=== PATIENT | female | born 1990 | race American Indian/Alaskan Native ===

== ENCOUNTER 2017-01-17 22:42 | Emergency (ER) | payer OTHER ==
[2017-01-17 23:39] LABS: Basophils % (Auto) 0.3 % (0.0-1.8); Eosinophils % (Auto) 0.4 % (0.0-4.3); Hematocrit 36.3 % (30.3-42.9); Hemoglobin 11.4 gm/dl (10.1-14.3); Mean Corpuscular HGB Conc 31 % (30-34); Mean Corpuscular Hemoglobin 27 pg (28-32); Mean Corpuscular Volume 87 fl (79-97); Platelet Count 250 K/mm3 (140-440); Red Blood Count 4.17 M/mm3 (3.65-5.03); Red Cell Distribution Width 15.1 % (13.2-15.2); White Blood Count 13.2 K/mm3 (4.5-11.0)
[2017-01-18 00:09] LABS: Alanine Aminotransferase 10 units/L (7-56); Albumin 3.6 g/dL (3.9-5); Albumin/Globulin Ratio 0.9 %; Alkaline Phosphatase 57 units/L (35-129); Anion Gap 20 mmol/L; BUN/Creatinine Ratio 13.33; Bilirubin,Total < 0.20 mg/dL (0.1-1.2); Blood Urea Nitrogen 8 mg/dL (7-17); Calcium 9.4 mg/dL (8.4-10.2); Carbon Dioxide 22 mmol/L (22-30); Chloride 99.6 mmol/L (98-107); Glucose 100 mg/dL (65-100); Lipase 22 units/L (13-60); Potassium 3.4 mmol/L (3.6-5.0); Sodium 138 mmol/L (137-145); Total Protein 7.6 g/dL (6.3-8.2)
[2017-01-18 02:05] VITALS: BP 117/64
[2017-01-18 02:05] LABS: Bacteria,Urine 2+ /HPF (Negative); Bilirubin,Urine NEG (Negative); Blood,Urine SM (Negative); Ketones,Urine NEG (Negative); Leukocyte Esterase,Urine LG (Negative); Mucus,Urine 3+ /HPF; Nitrite,Urine POS (Negative); Protein,Urine <15 mg/dL mg/dL (Negative); Urobilinogen,Urine < 2.0 mg/dL (<2.0)
== END 2017-01-18 04:35 | disposition left against medical advice (07) ==
LOC: ED 22:42
DX: R10.2 Pelvic and perineal pain (principal); Z53.21 Procedure and treatment not carried out due to patient leaving prior to being seen by health care provider
CPT/HCPCS: 36415; 80053; 81001; 83690; 84702; 85025

== ENCOUNTER 2020-02-09 03:14 | Emergency (ER) | payer OTHER ==
[2020-02-09] MEDS ORDERED: SULFAMETHOXAZOLE/TRIMETHOPRIM 800/160MG DS TAB PO ONE (04:25)
[2020-02-09] MEDS ORDERED: ACETAMINOPHEN 500 MG TAB PO ONE (04:25)
[2020-02-09] MEDS ORDERED: IBUPROFEN 600 MG TAB PO ONE (04:25)
--- NOTE | 2020-02-09 05:24 | XRay Report ---
CLINICAL DATA: Pain from a fall TECHNICAL DATA: Three views were obtained, AP, lateral and oblique. FINDINGS: There is no acute fracture or dislocation. The visualized joint spaces are normal. IMPRESSION: No acute radiographic abnormality. Signer Name: Clint Marks MD Signed: 02/09/2020 5:20 AM Workstation Name: [id number]
--- NOTE | 2020-02-09 05:29 | Emergency Department Report ---
ED Fall HPI - General Chief Complaint: Fall Stated Complaint: LACERATION TO THUMB ON RT HAND Source: patient Mode of arrival: Ambulatory - History of Present Illness Initial Comments: Patient is a 29-year-old -[place]ones[place] female with a history of asthma and chronic tobacco abuse who presents to the ED with complaint of acute onset persistent severe right thumb pain and left thumbnail pain with bleeding abrasion after she slipped in the bathtub and fell down but braced herself with the bilateral hands and in the process her right thumbnail was hyperextended with a partial tear about 2 hours ago. Patient states that the bleeding is well controlled at this time but the pain has been persistent worse. Patient states she is up-to-date with her vaccinations. Patient denies numbness and tingling or weakness of right hand, dizziness, syncope, seizures, chest pain or shortness of breath, head or neck injuries, back pain, hip pain, abdominal pain or dental injuries. MD Complaint: fall, other (right thumb pain with partial nail avulsion) -: Sudden, hour(s) (2) Fall From: other (slipped and fell down in the bath tub) When Fall Occurred: 1-3 hours [employer] Fall Witnessed: yes, by family Place Fall Occurred: home Loss of Consciousness: none Prolonged Down Time?: no Symptoms Prior to Fall: none Location: other (right thumb and thumb nail) Location - Extremities: Right: Hand (Right thumb and nail pain) Severity: severe Severity scale (0 -10): 7 Quality: sharp, aching Context: tripped/slipped Associated Symptoms: denies. denies: headache, neck pain, numbness, weakness, chest paint, shortness of breath, abdominal pain, hematuria, unable to walk, lightheaded, vertigo, confusion, other - Related Data Previous Rx's Medication Instructions Recorded Last Taken Type Ibuprofen [Motrin] 800 mg PO Q8HR PRN #30 tablet 02/09/20 Unknown Rx Sulfamethoxazole/Trimethoprim 1 each PO Q12H #20 tablet 02/09/20 Unknown Rx [Bactrim DS TAB] Allergies Allergy/AdvReac Type Severity Reaction Status Date / Time fruit Allergy Itching Uncoded 02/09/20 03:26 ED Review of Systems ROS: Stated complaint: LACERATION TO THUMB ON RT HAND Other details as noted in HPI Constitutional: denies: chills, fever Eyes: denies: eye pain, eye discharge, vision change ENT: denies: ear pain, throat pain Respiratory: denies: cough, shortness of breath, wheezing Cardiovascular: denies: chest pain, palpitations Endocrine: no symptoms reported Gastrointestinal: denies: abdominal pain, nausea, diarrhea Genitourinary: denies: urgency, dysuria, discharge Musculoskeletal: arthralgia (Right thumb pain with nail injury). denies: back pain, joint swelling Skin: denies: rash, lesions Neurological: denies: headache, weakness, paresthesias Psychiatric: denies: anxiety, depression Hematological/Lymphatic: denies: easy bleeding, easy bruising ED Past Medical Hx - Past Medical History Previous Medical History?: Yes Hx Asthma: Yes - Surgical History Past Surgical History?: Yes Additional Surgical History: x1. left knee. tubal ligation - Social History Smoking Status: Never Smoker Substance Use Type: None - Medications Home Medications: Home Medications Medication Instructions Recorded Confirmed Last Taken Type Ibuprofen [Motrin] 800 mg PO Q8HR PRN #30 tablet 02/09/20 Unknown Rx Sulfamethoxazole/Trimethoprim 1 each PO Q12H #20 tablet 02/09/20 Unknown Rx [Bactrim DS TAB] ED Physical Exam - General Limitations: No Limitations General appearance: alert, in no apparent distress - Head Head exam: Present: atraumatic, normocephalic, normal inspection - Eye Eye exam: Present: normal appearance, PERRL, EOMI Pupils: Present: normal accommodation - ENT ENT exam: Present: normal exam, normal orophraynx, mucous membranes moist, TM's normal bilaterally, normal external ear exam - Neck Neck exam: Present: normal inspection, full ROM - Respiratory Respiratory exam: Present: normal lung sounds bilaterally. Absent: respiratory distress, wheezes, rales, rhonchi, chest wall tenderness, accessory muscle use - Cardiovascular Cardiovascular Exam: Present: regular rate, normal rhythm, normal heart sounds. Absent: systolic murmur, diastolic murmur, rubs, gallop - GI/Abdominal GI/Abdominal exam: Present: soft, normal bowel sounds. Absent: tenderness, guarding, hyperactive bowel sounds, hypoactive bowel sounds - Extremities Exam Extremities exam: Present: normal inspection, full ROM, tenderness (Right thumb pain with partial nail avulsion), normal capillary refill - Back Exam Back exam: Present: normal inspection, full ROM. Absent: tenderness, CVA tenderness (L), muscle spasm, paraspinal tenderness, vertebral tenderness - Neurological Exam Neurological exam: Present: alert, oriented X3, CN II-XII intact, normal gait, reflexes normal - Psychiatric Psychiatric exam: Present: normal affect, normal mood - Skin Skin exam: Present: warm, dry, intact, normal color. Absent: rash ED Course Vital Signs 02/09/20 03:28 Temperature 98.3 F Pulse Rate 70 Respiratory 16 Rate Blood Pressure 129/67 [Right] O2 Sat by Pulse 100 Oximetry ED Medical Decision Making - Radiology Data Radiology results: report reviewed, image reviewed No acute fractures or subluxations of right thumb or right hand - Medical Decision Making This is a 29-year-old -Gabonese female with a history of asthma and chronic tobacco abuse who presents to the ED with complaint of acute onset persistent severe right thumb pain and left thumbnail pain with bleeding abrasion after she slipped in the bathtub and fell down but braced herself with the bilateral hands and in the process her right thumbnail was hyperextended with a partial tear about 2 hours ago. Patient states that the bleeding is well controlled at this time but the pain has been persistent worse. Patient states she is up-to-date with her vaccinations. In the ED, patient is alert and oriented x3 and is not in distress. Patient was treated for pain in the ED and also given initial oral antibiotics. The right thumb x-ray showed no acute fractures or subluxations. The right thumb was cleaned and splinted with a thumb spica splint. Patient was discharged home on pain medications and oral antibiotics and was advised to follow-up with her primary care physician in 7 to 10 days for reevaluation or return to the ED immediately if symptoms get worse. - Differential Diagnosis Thumb sprain; partial nail avulsion; hand contusion Critical care attestation.: If time is entered above; I have spent that time in minutes in the direct care of this critically ill patient, excluding procedure time. ED Disposition Clinical Impression: Contusion of right thumb with damage to nail, initial encounter Sprain of interphalangeal joint of right thumb Qualifiers: Encounter type: initial encounter Qualified Code(s): S63.621A - Sprain of interphalangeal joint of right thumb, initial encounter Disposition: TO HOME OR SELFCARE Is pt being admited?: No Does the pt Need Aspirin: No Condition: Stable Instructions: Finger Sprain (ED), Toenail/Fingernail Removal (ED) Additional Instructions: Right hand x-ray shows no acute fractures or subluxations of your right thumb. Take medication with food, drink plenty of fluids and follow-up with your primary care physician in 7 to 10 days for reevaluation. Return to the ED immediately if symptoms get worse. Prescriptions: Sulfamethoxazole/Trimethoprim [Bactrim DS TAB] 1 each PO Q12H #20 tablet Ibuprofen [Motrin] 800 mg PO Q8HR PRN #30 tablet PRN Reason: Pain , Severe (7-10) Referrals: [facility] [Provider Group] - 7-10 days Forms: Work/School Release Form(ED) Time of Disposition: 05:32 Print Language: TAIWANESE
[2020-02-09 06:09] VITALS: BP 120/61
== END 2020-02-09 06:06 | disposition home or self-care (01) ==
LOC: ED 03:14
DX: S60.111A Contusion of right thumb with damage to nail, initial encounter (principal); J45.909 Unspecified asthma, uncomplicated; Z98.51 Tubal ligation status; Z79.899 Other long term (current) drug therapy; W18.2XXA Fall in (into) shower or empty bathtub, initial encounter; Y93.89 Activity, other specified; Y92.89 Other specified places as the place of occurrence of the external cause; Y99.8 Other external cause status